=== PATIENT | female | born 1950 | race Caucasian/White ===

== ENCOUNTER 2020-01-15 14:43 | Outpatient (CLI) | payer MEDICARE, SELFPAY ==
--- NOTE | 2020-01-15 | XR_ITS ---
WS: [id number] SCREENING DEXA SCAN [facility] CLINICAL INFORMATION: POSTMENOPAUSAL STATUS COMPARISON: None. FINDINGS: The L1-L4 bone mineral density measures 1.247 g/cm2. This corresponds to a T score score of 0.6 and Z score of 1.0. Left femoral neck bone mineral density measures 1.012 g/cm2. This corresponds to a T score of 0.0 and Z score of 0.5. Right femoral neck bone mineral density measures 0.974 g/cm2. This corresponds to a T score -0.3of an d Z score of 0.2. Mean femoral neck bone mineral density measures 0.993 g/cm2. This corresponds to a T score of -0.1 an d Z score of 0.4. XR/XR DEXA axial skeleton* [id number] IMPRESSION: Normal bone mineralization. Patient's FRAX calculated 10 year probability for major osteoporotic fracture i s 8.3 % and osteoporotic hip fracture is 0.9%.
== END 2020-01-15 14:44 | disposition home or self-care (01) ==
LOC: RADWPI 14:45
PROVIDERS: Family Provider Family Medicine; PCP Family Medicine; Visit Provider Family Medicine
DX: Z78.0 Asymptomatic menopausal state (principal)
CPT/HCPCS: 77080

== ENCOUNTER 2020-01-17 12:23 | Outpatient (RCR) | payer MEDICARE, SELFPAY | END 2020-02-02 23:59 | disposition home or self-care (01) | LOC: SPT 12:23 | PROVIDERS: PCP Family Medicine; Referring Provider Family Medicine; Visit Provider Family Medicine | DX: H81.10 Benign paroxysmal vertigo, unspecified ear (principal) | CPT/HCPCS: 95992; 97162 ==

== ENCOUNTER 2020-02-03 06:00 | Outpatient (RCR) | payer MEDICARE, SELFPAY | END 2020-03-04 23:59 | disposition home or self-care (01) | LOC: SPT 06:00 | PROVIDERS: PCP Family Medicine; Referring Provider Family Medicine; Visit Provider Family Medicine | DX: H81.10 Benign paroxysmal vertigo, unspecified ear (principal) | CPT/HCPCS: 95992 ==

== ENCOUNTER 2020-09-09 09:24 | Outpatient (CLI) | payer MEDICARE, SELFPAY ==
--- NOTE | 2020-09-09 09:30 | MM_ITS ---
WS: [id number] DIAGNOSTIC LEFT DIGITAL MAMMOGRAM WITH CAD HISTORY: HX OF BREAST CA, prior RIGHT mastectomy. COMPARISON: 07/12/2019, 06/13/2019 Technique: CC, MLO and ML views. Breast composition: The breasts are heterogeneously dense, which may obscure small masses. A few sca ttered benign calcifications. No suspicious mass or distortion. Benign lymph nodes in the axillary ta il. MM/[place] [id number] IMPRESSION: BI-RADS: 2-Benign FOLLOW UP: 1 Year Follow-up
== END 2020-09-09 09:25 | disposition home or self-care (01) ==
LOC: RADSHAW 09:28
PROVIDERS: PCP Family Medicine; Visit Provider Family Medicine
DX: Z85.3 Personal history of malignant neoplasm of breast (principal); Z90.11 Acquired absence of right breast and nipple
CPT/HCPCS: 77065; 77066

== ENCOUNTER 2021-01-21 14:08 | Outpatient (CLI) | payer MEDICARE, SELFPAY ==
--- NOTE | 2021-01-21 14:18 | USCV_ITS ---
Batsheva Mallory Age: 70 Gender: F : 1950 Exam Date: 01/21/2021 14:30 Ordering Phys: Shelton Humphrey MD Technologist: Alice Lujan Exam [place] [facility] [place]: CARDIOMYOPATHY BP: / HR: 79 Rhythm: Sinus Technical Quality: Very technically difficult study MEASUREMENTS (Male / Female) Normal Values 2D ECHO LV Diastolic Diameter PLAX 5.1 cm 4.2 - 5.9 / 3.9 - 5.3 cm LV Systolic Diameter PLAX 3.2 cm LV Chamber Size 3.5 cm IVS Diastolic Thickness 1.6 cm 0.6 - 1.0 / 0.6 - 0.9 cm IVS Systolic Thickness 2.0 cm LVPW Diastolic Thickness 1.6 cm 0.6 - 1.0 / 0.6 - 0.9 cm LVPW Systolic Thickness 1.5 cm RV Chamber Size 2.9 cm LVOT Diameter 2.1 cm LV Ejection Fraction 2D Teich 66.6 % LV Ejection Fraction MOD 2C 59.6 % LV Ejection Fraction 2C AL 62.4 % LA Diameter 3.8 cm LA Width 3.1 cm LA Height 5.0 cm RA Width 3.1 cm RA Height 4.6 cm Aorta at Sinotubular Diameter 3.2 cm M-MODE LV Diastolic Diameter MM 5.4 cm 4.2 - 5.9 / 3.9 - 5.3 cm LV Systolic Diameter MM 3.5 cm LV Ejection Fraction MM Teich 64.6 % IVS Diastolic Thickness MM 1.7 cm 0.6 - 1.0 / 0.6 - 0.9 cm IVS Systolic Thickness MM 1.9 cm LVPW Diastolic Thickness MM 1.8 cm 0.6 - 1.0 / 0.6 - 0.9 cm LVPW Systolic Thickness MM 2.8 cm MV E Point Septal Separation 0.9 cm DOPPLER AV Peak Velocity 131.0 cm/s LVOT Peak Velocity 78.0 cm/s AV Area Cont Eq vti 2.1 cm squared AV Area Cont Eq pk 2.0 cm squared MV Area PHT 5.6 cm squared Mitral E to A Ratio 0.6 MV E' Velocity 32.0 cm/s Mitral E to MV E' Ratio 8.5 Mitral E to LV E' Lateral Ratio 8.6 Mitral E to LV E' Septal Ratio 8.4 TR Peak Velocity 172.3 cm/s TR Peak Gradient 11.9 mmHg TR Mean Velocity 123.5 cm/s TR Mean Gradient 6.8 mmHg TR Velocity Time Integral 36.0 cm TV Peak E Velocity 66.0 cm/s Right Atrial Pressure 3.0 mmHg Pulmonary Artery Systolic Pressu 14.9 mmHg PV Peak Velocity 61.0 cm/s RV Acceleration Time 0.1 s RV Ejection Time 0.3 s RV AcT/ET 0.4 FINDINGS Left Ventricle Normal left ventricular size. LV systolic function is grossly normal. Regional wall motion abnormalities cannot be assessed because of poor visualization. Grade 1 diastolic dysfunction Right Ventricle The right ventricle is normal in size and function. Right Atrium The right atrium is normal in size. Left Atrium The left atrium is normal in size. Mitral Valve Structurally normal mitral valve without significant stenosis or prolapse. There is no mitral regurgitation. Aortic Valve Grossly normal without significant sclerosis or stenosis. There is no aortic regurgitation. Tricuspid Valve Not well visualized. No significant stenosis or regurgitation. Insufficient TR jet to calculate RVSP Pulmonic Valve Not well visualized Pericardium Normal pericardium without effusion. Aorta Normal ascending aorta dimension. CONCLUSIONS Limited quality echocardiogram because of poor ultrasonic windows LV systolic function is grossly normal. Grade 1 diastolic dysfunction No signfiicant valvular heart disease Compared to prior echocardiogram from 03/18/2016, no significant changes are noted Eliseo Gutierrez MD (Electronically Signed) Final Date: 29 January 2021 16:56 S
== END 2021-01-21 14:09 | disposition home or self-care (01) ==
LOC: RAD 14:13
PROVIDERS: PCP Family Medicine; Visit Provider Family Medicine
DX: I42.9 Cardiomyopathy, unspecified (principal)
CPT/HCPCS: 93306

== ENCOUNTER → 2021-04-16 13:03 | Outpatient (BNVA) | payer MEDICARE, SELFPAY | PROVIDERS: PCP Family Medicine; Visit Provider Nurse Practitioner Family | DX: Z20.822 Contact with and (suspected) exposure to COVID-19 (principal) | CPT/HCPCS: 87635 ==

== ENCOUNTER 2021-10-30 16:56 | Outpatient (CLI) | payer MEDICARE, SELFPAY | END 2021-10-30 16:57 | disposition home or self-care (01) | PROVIDERS: PCP Family Medicine; Visit Provider Family Medicine | DX: R35.0 Frequency of micturition (principal) | CPT/HCPCS: 87086 ==

== ENCOUNTER → 2021-11-11 16:58 | Outpatient (BNVA) | payer MEDICARE, SELFPAY | PROVIDERS: PCP Family Medicine; Visit Provider Family Medicine | DX: Z01.419 Encounter for gynecological examination (general) (routine) without abnormal findings (principal) | CPT/HCPCS: 87624 ==

== ENCOUNTER 2021-12-11 14:16 | Outpatient (CLI) | payer MEDICARE, SELFPAY ==
--- NOTE | 2021-12-11 14:27 | MM_ITS ---
WS: [id number] LEFT 3D TOMOSYNTHESIS DIGITAL MAMMOGRAPHY WITH CAD CLINICAL INFORMATION: HX OF BREAST CA;RT MAST HISTORY: COMPARISON: September 09, 2020 TECHNIQUE: 3 views of the left breast were obtained. FINDINGS: Scattered fibroglandular densities of the left breast. A few incidental punctate calcifications. Vasc ular calcification. No suspicious focal mass, asymmetry, calcifications, or architectural distortion. No evidence of tyler gnancy. MM/[place] [id number] IMPRESSION: BI-RADS: 2-Benign FOLLOW UP: 1 Year Follow-up Recommend return to annual diagnostic mammography.
== END 2021-12-11 14:17 | disposition home or self-care (01) ==
LOC: RAD 14:18
PROVIDERS: PCP Family Medicine; Visit Provider Family Medicine
DX: Z85.3 Personal history of malignant neoplasm of breast (principal); Z90.11 Acquired absence of right breast and nipple
CPT/HCPCS: 77061

== ENCOUNTER → 2022-01-06 14:15 | Outpatient (BNVA) | payer MEDICARE, SELFPAY | PROVIDERS: PCP Family Medicine; Visit Provider Family Medicine | DX: E53.8 Deficiency of other specified B group vitamins (principal); E11.9 Type 2 diabetes mellitus without complications | CPT/HCPCS: 80053; 82607; 83036; 85025 ==

== ENCOUNTER → 2022-04-14 08:24 | Outpatient (BNVA) | payer MEDICARE, SELFPAY | PROVIDERS: PCP Family Medicine; Visit Provider Family Medicine | DX: I10 Essential (primary) hypertension (principal); E53.8 Deficiency of other specified B group vitamins; E11.9 Type 2 diabetes mellitus without complications | CPT/HCPCS: 80053; 82607; 83036; 85025 ==

== ENCOUNTER → 2022-05-06 13:31 | Outpatient (BNVA) | payer MEDICARE, SELFPAY | PROVIDERS: PCP Family Medicine; Visit Provider Surgery | DX: K63.5 Polyp of colon (principal) | CPT/HCPCS: 99213 ==